=== PATIENT | female | born 1980 | race Caucasian/White ===

== ENCOUNTER 2017-08-10 17:09 | Emergency (ER) | payer OTHER ==
[2017-08-10 17:18] VITALS: BP 112/73; PULSE 94; TEMP 98.1; BMI 46.7
--- NOTE | 2017-08-10 17:22 | PDOC ---
Rapid Medical Evaluation Time Seen by Provider: 08/10/17 17:15 Medical Evaluation: Allergies Allergy/AdvReac Type Severity Reaction Status Date / Time naproxen [From Anaprox] Allergy Severe Hives Verified 08/10/17 17:16 08/10/17 17:16 I have performed a brief in-person evaluation of this patient. The patient presents with a chief complaint of: Dr Person sent after US - showed Right ovarian cyst rupture, and was told to come for CT and blood work. Hx PCOD Pertinent physical exam findings: Pale, , 7/10 pain to right lower pelvis/ started Wednesday. Fever last PM 101.4 I have ordered the following: CBC, CMP, PT/INR/ Type and Screen/ US Pelvis The patient will proceed to the ED for further evaluation.
[2017-08-10 17:50] LABS: URINE APPEARANCE SLCLOUDY; URINE BILIRUBIN NEGATIVE (<2.0 mg/dL); URINE BLOOD NEGATIVE (NEGATIVE); URINE COLOR DKYELLOW; URINE GLUCOSE (UA) NEGATIVE (NEGATIVE); URINE KETONE NEGATIVE (NEGATIVE); URINE LEUK ESTERASE NEGATIVE (NEGATIVE); URINE NITRITE NEGATIVE (NEGATIVE); URINE PROTEIN NEGATIVE (NEGATIVE)
[2017-08-10 18:01] LABS: BASO % 1.2 % (0-2.0); EOS % 2.7 % (0-4.5); HEMATOCRIT 45.3 % (32.4-45.2); HEMOGLOBIN 14.9 GM/dL (10.7-15.3); LYMPH % 31.7 % (8-40); MCH 26.3 pg (25.7-33.7); MCHC 32.8 g/dl (32.0-36.0); MEAN CELL VOLUME 80.1 fl (80-96); MEAN PLT VOLUME 7.1 fl (7.5-11.1); MONO % 11.4 % (3.8-10.2); PLATELET COUNT 435 K/MM3 (134-434); RBC 5.65 M/mm3 (3.60-5.2); RDW 14.6 % (11.6-15.6); WHITE BLOOD COUNT 8.1 K/mm3 (4.0-10.0)
[2017-08-10 18:41] LABS: HCG,QUALITATIVE URINE NEGATIVE
[2017-08-10 18:50] LABS: ALBUMIN 3.4 g/dl (3.4-5.0); ANION GAP 9 (8-16); BLOOD UREA NITROGEN 7 mg/dL (7-18); CALCIUM 8.6 mg/dL (8.5-10.1); CHLORIDE 105 mmol/L (98-107); CO2 21 mmol/L (21-32); CREATININE 0.8 mg/dL (0.55-1.02); GLUCOSE,RANDOM 94 mg/dL (74-106); POTASSIUM 4.3 mmol/L (3.5-5.1); SGOT/AST 24 U/L (15-37); SGPT/ALT 43 U/L (12-78); SODIUM 135 mmol/L (136-145)
[2017-08-10 18:52] LABS: ALK PHOS 71 U/L (45-117); BILIRUBIN,TOTAL 0.5 mg/dL (0.2-1.0); TOT PROT 7.5 g/dl (6.4-8.2)
[2017-08-10] MEDS ORDERED: SODIUM CHLORIDE 0.9% 1000 ML INFUS.BAG IV ONE (19:00)
[2017-08-10] MEDS ORDERED: morphine CARPU-JECT 4 MG/1 ML DISP.SYRIN IVPUSH ONE ×2 (19:00→22:25)
[2017-08-10] MEDS ORDERED: morphine CARPU-JECT 2 MG/1 ML DISP.SYRIN ONE (19:02)
[2017-08-10] MEDS ORDERED: morphine SULFATE 4 MG/ML VIAL ONE (22:34)
--- NOTE | 2017-08-10 22:40 | PDOC ---
History of Present Illness <Jasson Harper - Last Filed: 08/10/17 23:33> - History of Present Illness Initial Comments: 08/10/17 22:36 "The patient is a 37 year old female, with a significant past medical history of obesity, DM, PCOS, and recurrent cyst on her right breast (monthly flare ups) , who presents to the emergency department with, 3 days of abdominal pain. The patient reports her abdominal pain started 2 days ago and was diffuse across her lower abdomen. Yesterday, the pain became localized to the right lower quadrant. Pt also endorses fever and nausea without vomiting. She reports the pain is worse when sitting and is associated with lower back pain. Pt saw Dr. Person today who performed an ultrasound which revealed a ruptured right ovarian cyst. However, he advised her to come into the ED for blood work and a CT scan to rule out appendicitis as well. She denies any vaginal bleeding or discharge. She denies recent chills, headache or dizziness. She denies recent vomit, diarrhea or constipation. She denies recent chest pain or shortness of breath. Allergies: Naproxen. Past surgical history: None reported. Social history: Nonsmoker. Denies EtOH use and recreational drug use. " <Gus Putnam - Last Filed: 08/11/17 00:13> - General Chief Complaint: Pain, Acute Stated Complaint: PCP SENT Time Seen by Provider: 08/10/17 17:15 Past History <Jasson Harper - Last Filed: 08/10/17 23:33> - Past Medical History COPD: No Diabetes: Yes - Immunization History Immunization Up to Date: Yes - Suicide/Smoking/Psychosocial Hx Smoking History: Current every day smoker Number of Cigarettes Smoked Daily: 10 Information on smoking cessation initiated: No Hx Alcohol Use: No Drug/Substance Use Hx: No Substance Use Type: Marijuana <Gus Putnam - Last Filed: 08/11/17 00:13> - Past Medical History Allergies/Adverse Reactions: Allergies Allergy/AdvReac Type Severity Reaction Status Date / Time naproxen [From Anaprox] Allergy Severe Hives Verified 08/10/17 17:16 Home Medications: Ambulatory Orders Oxycodone HCl/Acetaminophen [Percocet 5-325 mg Tablet] 1 tab PO Q6H PRN #12 tablet MDD 4 tabs 08/11/17 Review of Systems - Review of Systems Comments:: 08/10/17 22:39 "GENERAL/CONSTITUTIONAL: Fever. No chills. No weakness. HEAD, EYES, EARS, NOSE AND THROAT: No change in vision. No ear pain or discharge. No sore throat. CARDIOVASCULAR: No chest pain or shortness of breath. RESPIRATORY: No cough, wheezing, or hemoptysis. +GASTROINTESTINAL: Nausea. No vomiting, diarrhea or constipation. +GENITOURINARY: Right lower quadrant pain. No dysuria, frequency, or change in urination. MUSCULOSKELETAL: No joint or muscle swelling or pain. No neck or back pain. SKIN: No rash NEUROLOGIC: No headache, vertigo, loss of consciousness, or change in strength/ sensation. ENDOCRINE: No increased thirst. No abnormal weight change. HEMATOLOGIC/LYMPHATIC: No anemia, easy bleeding, or history of blood clots. ALLERGIC/IMMUNOLOGIC: No hives or skin allergy. " <Gus Putnam - Last Filed: 08/11/17 00:13> *Physical Exam - Vital Signs Last Vital Signs Temp Pulse Resp BP Pulse Ox 98.1 F 94 H 20 112/73 100 08/10/17 17:16 08/10/17 17:16 08/10/17 17:16 08/10/17 17:16 08/10/17 17:16 <Jasson Harper - Last Filed: 08/10/17 23:33> - Vital Signs Last Vital Signs Temp Pulse Resp BP Pulse Ox 98.1 F 94 H 20 112/73 100 08/10/17 17:16 08/10/17 17:16 08/10/17 17:16 08/10/17 17:16 08/10/17 17:16 - Physical Exam Comments: 08/10/17 22:39 """GENERAL: Awake, alert, and fully oriented, in no acute distress. HEAD: No signs of trauma EYES: PERRLA, EOMI, sclera anicteric, conjunctiva clear ENT: Auricles normal inspection, hearing grossly normal, nares patent, oropharynx clear without exudates. Moist mucosa NECK: Nontender, no stepoffs, Normal ROM, supple, no lymphadenopathy, JVD, or masses LUNGS: Breath sounds equal, clear to auscultation bilaterally. No wheezes, and no crackles HEART: Regular rate and rhythm, normal S1 and S2, no murmurs, rubs or gallops ABDOMEN: + RLQ TTP, normoactive bowel sounds. No guarding, no rebound. No masses EXTREMITIES: Normal range of motion, no edema. No clubbing or cyanosis. No cords, erythema, or tenderness NEUROLOGICAL: Cranial nerves II through XII intact. 5/5 strength and sensation in all extremities, Normal speech, normal gait, normal cerebellar function SKIN: Warm, Dry, normal turgor, no rashes or lesions noted. """ <IndyGus - Last Filed: 08/11/17 00:13> ED Treatment Course - LABORATORY CBC & Chemistry Diagram: 08/10/17 17:52 08/10/17 17:54 - ADDITIONAL ORDERS Additional order review: Laboratory Results 08/10/17 08/10/17 08/10/17 17:54 17:54 17:54 Sodium 135 L Potassium 4.3 Chloride 105 Carbon Dioxide 21 Anion Gap 9 BUN 7 Creatinine 0.8 Creat Clearance w eGFR > 60 Random Glucose 94 Calcium 8.6 Total Bilirubin 0.5 AST 24 ALT 43 Alkaline Phosphatase 71 Total Protein 7.5 Albumin 3.4 Lipase 71 L Urine Color Urine Appearance Urine pH Ur Specific [place] Urine Protein Urine Glucose (UA) Urine Ketones Urine Blood Urine Nitrite Urine Bilirubin Urine Urobilinogen Ur Leukocyte Esterase Urine HCG, Qual Blood Type A POSITIVE Antibody Screen Negative 08/10/17 17:30 Sodium Potassium Chloride Carbon Dioxide Anion Gap BUN Creatinine Creat Clearance w eGFR Random Glucose Calcium Total Bilirubin AST ALT Alkaline Phosphatase Total Protein Albumin Lipase Urine Color Dkyellow Urine Appearance Slcloudy Urine pH 6.0 Ur Specific [place] 1.020 Urine Protein Negative Urine Glucose (UA) Negative Urine Ketones Negative Urine Blood Negative Urine Nitrite Negative Urine Bilirubin Negative Urine Urobilinogen 2.0 H Ur Leukocyte Esterase Negative Urine HCG, Qual Negative Blood Type Antibody Screen 08/10/17 17:52 RBC 5.65 H MCV 80.1 MCHC 32.8 RDW 14.6 MPV 7.1 L Neutrophils % 53.0 Lymphocytes % 31.7 Monocytes % 11.4 H Eosinophils % 2.7 Basophils % 1.2 - Medications Given in the ED: ED Medications Discontinued Medications Generic Name Dose Route Start Last Admin Trade Name Freq PRN Reason Stop Dose Admin Morphine Sulfate 4 mg 08/10/17 19:00 08/10/17 19:11 Morphine Injection - IVPUSH 08/10/17 19:01 4 mg ONCE ONE Administration Morphine Sulfate 4 mg 08/10/17 22:25 08/10/17 22:43 Morphine Injection - IVPUSH 08/10/17 22:26 4 mg ONCE ONE Administration Sodium Chloride 1,000 ml 08/10/17 19:00 08/10/17 19:12 Normal Saline - IV 08/10/17 19:01 1,000 ml ONCE ONE Administration <Jasson Harper - Last Filed: 08/10/17 23:33> - LABORATORY CBC & Chemistry Diagram: 08/10/17 17:52 08/10/17 17:54 - ADDITIONAL ORDERS Additional order review: Laboratory Results 08/10/17 08/10/17 08/10/17 17:54 17:54 17:54 Sodium 135 L Potassium 4.3 Chloride 105 Carbon Dioxide 21 Anion Gap 9 BUN 7 Creatinine 0.8 Creat Clearance w eGFR > 60 Random Glucose 94 Calcium 8.6 Total Bilirubin 0.5 AST 24 ALT 43 Alkaline Phosphatase 71 Total Protein 7.5 Albumin 3.4 Lipase 71 L Urine Color Urine Appearance Urine pH Ur Specific [place] Urine Protein Urine Glucose (UA) Urine Ketones Urine Blood Urine Nitrite Urine Bilirubin Urine Urobilinogen Ur Leukocyte Esterase Urine HCG, Qual Blood Type A POSITIVE Antibody Screen Negative 08/10/17 17:30 Sodium Potassium Chloride Carbon Dioxide Anion Gap BUN Creatinine Creat Clearance w eGFR Random Glucose Calcium Total Bilirubin AST ALT Alkaline Phosphatase Total Protein Albumin Lipase Urine Color Dkyellow Urine Appearance Slcloudy Urine pH 6.0 Ur Specific [place] 1.020 Urine Protein Negative Urine Glucose (UA) Negative Urine Ketones Negative Urine Blood Negative Urine Nitrite Negative Urine Bilirubin Negative Urine Urobilinogen 2.0 H Ur Leukocyte Esterase Negative Urine HCG, Qual Negative Blood Type Antibody Screen 08/10/17 17:52 RBC 5.65 H MCV 80.1 MCHC 32.8 RDW 14.6 MPV 7.1 L Neutrophils % 53.0 Lymphocytes % 31.7 Monocytes % 11.4 H Eosinophils % 2.7 Basophils % 1.2 - Medications Given in the ED: ED Medications Discontinued Medications Generic Name Dose Route Start Last Admin Trade Name Freq PRN Reason Stop Dose Admin Morphine Sulfate 4 mg 08/10/17 19:00 08/10/17 19:11 Morphine Injection - IVPUSH 08/10/17 19:01 4 mg ONCE ONE Administration Sodium Chloride 1,000 ml 08/10/17 19:00 08/10/17 19:12 Normal Saline - IV 08/10/17 19:01 1,000 ml ONCE ONE Administration <Gus Putnam - Last Filed: 08/11/17 00:13> Medical Decision Making - Medical Decision Making 08/10/17 22:39 37 F with RLQ pain, likely 2/2 ruptured ovarian cyst. However, given subjective fevers and nausea, pt was sent in to r/o appendicitis as well. - Labs, UA - CTAP - IVF, pain control 08/11/17 00:[address] without acute appy. US and CT show R ovarian cyst with free fluid, likely 2/2 rupture. Pt reassessed - pain is now well controlled. Pt is well appearing, with normal vitals. Clinically stable for DC at this time. I discussed the physical exam findings, ancillary test results and final diagnoses with the patient. I answered all of the patient's questions. The patient was satisfied with the care received and felt comfortable with the discharge plan and treatment plan. The patient agrees to follow up with the primary care physician within 24-72 hours. <Gus Putnam - Last Filed: 08/11/17 00:13> *DC/Admit/Observation/Transfer - Attestations Scribe Attestion: 08/10/17 23:33 Documentation prepared by Jasson Harper, acting as medical assistant cardiology for Gus Putnam MD. <Jasson Harper - Last Filed: 08/10/17 23:33> - Attestations Physician Attestion: 08/11/17 00:03 I, Dr. Gus Putnam MD, attest that this document has been prepared under my direction and personally reviewed by me in its entirety. I further attest, that it accurately reflects all work, treatment, procedures and medical decision -making performed by me. <Gus Putnam - Last Filed: 08/11/17 00:13> Diagnosis at time of Disposition: Ruptured ovarian cyst - Discharge Dispostion Disposition: HOME - Prescriptions Prescriptions: Oxycodone HCl/Acetaminophen [Percocet 5-325 mg Tablet] 1 tab PO Q6H PRN #12 tablet MDD 4 tabs PRN Reason: Pain - Referrals Referrals: ON STAFF,NOT [Primary Care Provider] - - Patient Instructions Printed Discharge Instructions: DI for Ovarian Cyst Additional Instructions: You have a ruptured ovarian cyst, which is causing you pain. Take a percocet twice daily as needed for pain. You can take up to two at a time. If you experience worsening pain, fevers, vomiting, or any other concerning symptoms, return to the ER immediately. Otherwise, follow up with Dr. Fields in 1 week. - Post Discharge Activity Forms/Work/School Notes: Back to Work
== END 2017-08-11 00:34 | disposition home or self-care (01) ==
LOC: JER 17:09
PROC: 3E033NZ Introduction of Analgesics, Hypnotics, Sedatives into Peripheral Vein, Percutaneous Approach (ICD-10-PCS; principal; 2017-08-10)
PROC: 3E033NZ Introduction of Analgesics, Hypnotics, Sedatives into Peripheral Vein, Percutaneous Approach (ICD-10-PCS; 2017-08-10)
DX: N83.291 Other ovarian cyst, right side (principal); E11.9 Type 2 diabetes mellitus without complications; Z79.84 Long term (current) use of oral hypoglycemic drugs; E66.9 Obesity, unspecified; Z68.42 Body mass index [BMI] 45.0-49.9, adult; F17.210 Nicotine dependence, cigarettes, uncomplicated
CPT/HCPCS: 36415; 74177-TC; 76830-TC; 80053; 81003; 83690; 84703; 85025; 86850; 86900; 86901; 99283-25; J7030

== ENCOUNTER 2022-08-10 21:32 | Emergency (ER) | payer OTHER ==
[2022-08-10 22:17] VITALS: BP 140/80; PULSE 75; RESP 18; TEMP 98; BMI 44.4
== END 2022-08-10 22:20 | disposition home or self-care (01) ==
LOC: FER 21:32
DX: R11.10 Vomiting, unspecified (principal); T18.120A Food in esophagus causing compression of trachea, initial encounter
CPT/HCPCS: 99283-25

== ENCOUNTER 2023-08-29 12:07 | Emergency (ER) | payer OTHER ==
[2023-08-29 12:15] VITALS: BP 140/93; PULSE 73; RESP 20; TEMP 98.6; BMI 43.5
== END 2023-08-29 13:58 | disposition home or self-care (01) ==
LOC: FER 12:07
DX: S99.921A Unspecified injury of right foot, initial encounter (principal); W22.03XA Walked into furniture, initial encounter
CPT/HCPCS: 73630-TC-RT-FY; 99283-25

== ENCOUNTER 2024-07-03 07:30 | Observation (INO) | payer OTHER ==
[2024-07-03 08:18] LABS: EOSINOPHIL % 7.9 % (0.7-5.8); EOSINOPHILS # 0.92 x10^3/uL (0.04-0.36); HEMOGLOBIN 14.7 g/dL (11.2-15.7); MCHC 32.7 g/dl (32.2-35.5); MEAN CELL VOLUME 83.6 fl (79.4-94.8); MEAN PLT VOLUME 8.7 fl (9.4-12.3); MONOCYTE # 0.57 x10^3/uL (0.24-0.86); MONOCYTE % 4.9 % (4.7-12.5); PLATELET COUNT 383 x10^3/uL (182-369); RDW 13.6 % (12.2-17.1)
[2024-07-03 08:19] LABS: ABSOLUTE IMMATURE GRANULOCYTES 0.02 x10^3/uL (0.0-0.031); BASOPHILS # 0.02 x10^3/uL (0.01-0.08)
[2024-07-03 08:22] LABS: HCG,QUALITATIVE URINE Negative
[2024-07-03 08:41] LABS: EPITHELIAL CELLS MANY /hpf
[2024-07-03] MEDS ORDERED: ONDANSETRON 4 MG/2 ML VIAL ONE ×2 (08:52→14:38)
[2024-07-03] MEDS ORDERED: ACETAMINOPHEN INJECTION 100 ML ONE (08:52)
[2024-07-03] MEDS ORDERED: FAMOTIDINE 20 MG/50 ML IVPB 20 MG/50 ML MG IVPB ONE (08:52)
[2024-07-03] MEDS ORDERED: MAG HYDROX/AL HYDROX/SIMETH 30 ML UNIT-DOSE CUP ONE (08:52)
[2024-07-03] MEDS: MAG HYDROX/AL HYDROX/SIMETH 30 ML UNIT-DOSE CUP PO ONE (08:59)
[2024-07-03] MEDS: SODIUM CHLORIDE 0.9% 1000 ML INFUS.BAG IV ONE (08:59)
[2024-07-03] MEDS: ONDANSETRON 4 MG/2 ML VIAL IVPUSH ONE ×2 (09:00→14:42)
[2024-07-03] MEDS: ACETAMINOPHEN 1000 MG/100 ML BAG IVPB ONE (09:00)
[2024-07-03] MEDS: FAMOTIDINE 20 MG/50 ML IVPB 20 MG/50 ML MG IVPB ONE (09:00)
[2024-07-03 09:18] LABS: ALBUMIN 3.9 g/dl (3.4-5.0); BILIRUBIN,TOTAL 0.4 mg/dl (0.2-1); CALCIUM 9.1 mg/dl (8.5-10.1); CREATININE 0.7 mg/dl (0.6-1.3); MAGNESIUM 1.7 mg/dL (1.8-2.4); POTASSIUM 4.1 mmol/L (3.5-5.1); TOT PROT 6.6 g/dl (6.4-8.2)
[2024-07-03] MEDS ORDERED: MAGNESIUM SULFATE IN WATER 2 GM/50 ML IVPB IVPB ONE (10:10)
[2024-07-03] MEDS: MAGNESIUM SULF 50% (8.12 MEQ/2 ML-1 GM VIAL) IVPB ONE (10:58)
[2024-07-03] MEDS: HYOSCYAMINE SULFATE 0.125 MG *ODT PO ONE (13:04)
[2024-07-03] MEDS: morphine CARPU-JECT 2 MG/1 ML DISP.SYRIN IVPUSH ONE (13:04)
[2024-07-03] MEDS ORDERED: morphine SULFATE 4 MG/ML VIAL ONE (14:32)
[2024-07-03] MEDS ORDERED: SUCRALFATE 1 GM/10 ML UNIT DOSE CUPS ONE (14:32)
[2024-07-03] MEDS: SUCRALFATE 1 GM/10 ML UNIT DOSE CUPS PO ONE (14:41)
[2024-07-03] MEDS: morphine CARPU-JECT 4 MG/1 ML DISP.SYRIN IVPUSH ONE (14:41)
[2024-07-03] MEDS ORDERED: POLYETHYLENE GLYCOL (HEALTHYLAX) 3350 17 GM PACKET PO PRN (15:36)
[2024-07-03] MEDS: PANTOPRAZOLE 40 MG TABLET PO SCH ×2 (15:45→21:20)
[2024-07-03] MEDS: ACETAMINOPHEN 1000 MG/100 ML BAG IVPB PRN (15:50)
[2024-07-03 15:55] VITALS: BMI 39.6
[2024-07-03] MEDS ORDERED: MAG HYDROX/AL HYDROX/SIMETH 30 ML UNIT-DOSE CUP PO PRN (18:20)
[2024-07-03] MEDS: clonazePAM 0.5 MG TABLET PO PRN (23:51)
[2024-07-04 08:02] LABS: ABSOLUTE IMMATURE GRANULOCYTES 0.01 x10^3/uL (0.0-0.031); BASOPHILS # 0.02 x10^3/uL (0.01-0.08); EOSINOPHIL % 9.2 % (0.7-5.8); EOSINOPHILS # 0.95 x10^3/uL (0.04-0.36); HEMATOCRIT 44.4 % (34.1-44.9); HEMOGLOBIN 14.5 g/dL (11.2-15.7); MCHC 32.7 g/dl (32.2-35.5); MEAN CELL VOLUME 83.9 fl (79.4-94.8); MEAN PLT VOLUME 8.9 fl (9.4-12.3); MONOCYTE # 0.59 x10^3/uL (0.24-0.86); MONOCYTE % 5.7 % (4.7-12.5); PLATELET COUNT 359 x10^3/uL (182-369); RDW 13.6 % (12.2-17.1)
[2024-07-04 08:52] LABS: ALBUMIN 3.8 g/dl (3.4-5.0); BILIRUBIN,TOTAL 0.5 mg/dl (0.2-1); CALCIUM 8.3 mg/dl (8.5-10.1); CREATININE 0.6 mg/dl (0.6-1.3); MAGNESIUM 2.2 mg/dL (1.8-2.4); POTASSIUM 4.4 mmol/L (3.5-5.1); TOT PROT 6.4 g/dl (6.4-8.2)
[2024-07-04] MEDS: METOCLOPRAMIDE HCL INJECTION 10 MG/2 ML VIAL IVPUSH PRN (13:41)
[2024-07-04] MEDS: ACETAMINOPHEN 1000 MG/100 ML BAG IVPB PRN (19:40)
[2024-07-04] MEDS: clonazePAM 0.5 MG TABLET PO ONE (21:13)
[2024-07-05 08:09] LABS: INR 1.06 (0.83-1.09); PROTHROMBIN TIME (PATIENT) 11.8 SEC (9.7-13.0)
[2024-07-05 08:24] LABS: CALCIUM 8.2 mg/dl (8.5-10.1); CREATININE 0.6 mg/dl (0.6-1.3); PHOSPHOROUS 3.5 (2.5-4.9); POTASSIUM 4.3 mmol/L (3.5-5.1)
[2024-07-05 13:11] VITALS: BP 122/81; PULSE 77; RESP 18; TEMP 98.4
== END 2024-07-05 13:50 | disposition home or self-care (01) ==
LOC: FER 07:30 → FM/S 14:25
PROVIDERS: ATTEND Internal Medicine
PROC: 3E033NZ Introduction of Analgesics, Hypnotics, Sedatives into Peripheral Vein, Percutaneous Approach (ICD-10-PCS; principal; 2024-07-03)
PROC: 3E033GC Introduction of Other Therapeutic Substance into Peripheral Vein, Percutaneous Approach (ICD-10-PCS; 2024-07-03)
PROC: 3E0337Z Introduction of Electrolytic and Water Balance Substance into Peripheral Vein, Percutaneous Approach (ICD-10-PCS; 2024-07-03)
DX: K56.7 Ileus, unspecified (principal); E83.42 Hypomagnesemia; K76.9 Liver disease, unspecified; R10.9 Unspecified abdominal pain; K76.0 Fatty (change of) liver, not elsewhere classified; R19.7 Diarrhea, unspecified; R11.10 Vomiting, unspecified; Z88.8 Allergy status to other drugs, medicaments and biological substances
CPT/HCPCS: 0241U-QW; 36415; 71046-TC-FY; 74177-TC; 76705-TC; 80048; 80053; 80061; 81003; 81015; 83036; 83690; 83735; 84100; 84439; 84484; 84703; 85025; 85610; 86140; 86850; 86900; 86901; 93005; 99291; G0378; J0131; Q9967